=== PATIENT | female | born 1980 | race Caucasian/White ===

== ENCOUNTER 2025-03-09 09:09 | Outpatient (CLI) | payer OTHER, SELFPAY | END 2025-03-09 09:10 | disposition home or self-care (01) | LOC: NFLDREF 03-10 13:36 | PROVIDERS: PCP Physician Assistant Medical; Referring Provider Physician Assistant Medical; Visit Provider Physician Assistant Medical | DX: N95.1 Menopausal and female climacteric states (principal); E66.9 Obesity, unspecified; Z11.3 Encounter for screening for infections with a predominantly sexual mode of transmission; Z11.59 Encounter for screening for other viral diseases; Z13.6 Encounter for screening for cardiovascular disorders; Z13.9 Encounter for screening, unspecified | CPT/HCPCS: 80053; 80061; 82306; 82607; 82670; 82728; 83001; 83002; 83540; 83550; 83735; 84144; 84403; 84439; 84443; 84480; 84481; 84482; 86703; 86803 ==